=== PATIENT | female | born 1985 | race Two or more races ===

== ENCOUNTER 2020-01-23 10:49 | Emergency (ER) | payer MEDICAID ==
--- NOTE | 2020-01-23 11:07 | ER Document Report ---
ED Medical Screen (RME) - General Chief Complaint: Insect Bite Stated Complaint: INSECT BITE Time Seen by Provider: 01/23/20 10:51 Mode of Arrival: Ambulatory Information source: Patient Notes: 34-year-old banish speaking female from [place] with history of diabetes presents to the emergency department with reports of being bit by a tick approximately 2 weeks ago. She reports her son removed the tick but she is worried because her back still hurts. Patient then admits that she has been to see her primary care provider and has been treated for a sore throat within the past 2 weeks. She also admits to going to the emergency department in [place] for the back pain but was only tested for the COVID. She reports this test happened in January 18. She reports she was negative for COVID. Patient then came to the [facility] because there is so much sickness in [place]. Her back still hurts. She denies fever vomiting diarrhea. Because of this recent travel patient was escorted to pod 5. I have greeted and performed a rapid initial assessment of this patient. A comprehensive ED assessment and evaluation of the patient, analysis of test results and completion of the medical decision making process will be conducted by additional ED providers. - Related Data Allergies/Adverse Reactions: No Known Allergies Allergy (Verified 01/23/20 10:52) Physical Exam - Vital signs Vitals: Temp 98.2 F 01/23/20 10:53 Course - Vital Signs Vital signs: Temp Pulse Resp BP Pulse Ox 98.2 F 01/23/20 10:53
[2020-01-23 11:58] VITALS: BP 116/83
--- NOTE | 2020-01-23 11:58 | ER Document Report ---
ED General - General Chief Complaint: Insect Bite Stated Complaint: INSECT BITE Time Seen by Provider: 01/23/20 10:51 Mode of Arrival: Ambulatory Information source: Patient Notes: Patient is a 34-year-old female presenting to the emergency department chief complaint of back pain and tick bite. Patient states that she was bit by a tick several weeks ago family took it off but she feels that part of it may have been left inside. Patient states she has had back pain in that area since. Patient states she has been seen at her primary care office as well as a hospital but has not been treated for either issue. All information from HPI and review of systems has been obtained using electronic director digital marketing. - HPI Onset: Other - 2.5 wks Onset/Duration: Gradual, Persistent Quality of pain: Achy Severity: Mild Pain Level: 1 Associated symptoms: None. denies: Nonproductive cough, Productive cough, Diarrhea, Fever, Nausea, Vomiting, Weakness Exacerbated by: Denies Relieved by: Denies Similar symptoms previously: No Recently seen / treated by doctor: Yes - Related Data Allergies/Adverse Reactions: No Known Allergies Allergy (Verified 01/23/20 10:52) Past Medical History - General Information source: Patient - Social History Smoking Status: Never Smoker Cigarette use (# per day): No Chew tobacco use (# tins/day): No Smoking Education Provided: No Frequency of alcohol use: None Drug Abuse: None Lives with: Family Family History: Reviewed & Not Pertinent Patient has suicidal ideation: No Patient has homicidal ideation: No Endocrine Medical History: Reports: Hx Diabetes Mellitus Type 2 Surgical Hx: Negative Review of Systems - Review of Systems Notes: REVIEW OF SYSTEMS: CONSTITUTIONAL : Denies fever, chills, or sweats. Denies recent illness. EENT: Denies eye, ear, throat, or mouth pain or symptoms. Denies nasal or sinus congestion. CARDIOVASCULAR: Denies chest pain. RESPIRATORY: Denies cough, cold, or chest congestion. Denies shortness of breath, difficulty breathing, or wheezing. GASTROINTESTINAL: Denies abdominal pain. Denies nausea, vomiting, or diarrhea. Denies constipation. GENITOURINARY: Denies difficulty urinating, painful urination, burning, frequency, or blood in urine. MUSCULOSKELETAL: Per HPI SKIN: Denies rash or skin lesions. HEMATOLOGIC : Denies easy bruising or bleeding. NEUROLOGICAL: Denies altered mental status or loss of consciousness. Denies headache. Denies weakness or paralysis or loss of use of either side. Denies problems with gait or speech. Denies sensory or motor loss. PSYCHIATRIC: Denies suicidal or homicidal ideations 10 Systems are negative unless otherwise specified above Physical Exam - Vital signs Vitals: Temp 98.2 F 01/23/20 10:53 - Notes Notes: PHYSICAL EXAMINATION: GENERAL: Well-appearing, well-nourished and in no acute distress. HEAD: Atraumatic, normocephalic. EYES: Pupils equal round and reactive to light, extraocular movements intact, sclera anicteric, conjunctiva are normal. ENT: nares patent, oropharynx clear without exudates. Moist mucous membranes. NECK: Normal range of motion, supple without lymphadenopathy, no appreciable JVD LUNGS: Lungs clear to auscultation bilaterally and equal. No wheezes rales or rhonchi. HEART: Regular rate and rhythm without murmurs ABDOMEN: Soft, nontender, normal bowel sounds. No guarding, no rebound. No masses appreciated. EXTREMITIES: Active full range of motion, no pitting or edema. No cyanosis. 2+ pulses x4 Back: Back is examined with nurse in attendance there is a small area approximately 3 mm in diameter appears to be a old scab superior and medial to the right upper scapula there is no rash or target lesion identified. NEUROLOGICAL: No focal neurological deficits. Moves all extremities spontaneously and on command. SKIN: Warm, Dry, and intact. Normal turgor, no rashes or lesions noted. Course - Re-evaluation Re-evalutation: 01/23/20 12:02 I discussed the findings with the patient and she will have Lyme titer as well as [place] spotted fever titers these are send out and she will be called if they are positive. At this point in time I do not feel the need to start antibiotics. Patient can treat her back pain with [id number] Tylenol Motrin and ice. - Vital Signs Vital signs: Temp Pulse Resp BP Pulse Ox 99.0 F 114 H 18 116/83 96 01/23/20 10:56 01/23/20 10:56 01/23/20 10:56 01/23/20 10:56 01/23/20 10:56 Discharge - Discharge Clinical Impression: Back pain Qualifiers: Back pain location: thoracic back pain Chronicity: unspecified Back pain laterality: right Qualified Code(s): M54.6 - Pain in thoracic spine Tick bite Qualifiers: Encounter type: initial encounter Qualified Code(s): W57.XXXA - Bitten or stung by nonvenomous insect and other nonvenomous arthropods, initial encounter Condition: Stable Disposition: HOME, SELF-CARE Additional Instructions: LOW BACK PAIN: Three out of every four people will have an episode of disabling back pain during their lifetime. Most commonly the pain is due to straining of the muscles and ligaments in the low back. Usual treatment includes: (1) Rest on a firm surface. Avoid lying on your stomach. (2) Ice pack the painful area. After a few days, gentle heat may be used intermittently to relax the area, or ice packs can be continued. (3) Medication may be needed -- muscle relaxers and antiinflammatory medicines are commonly used. (4) As the back improves, exercises are prescribed to strengthen the back and abdominal muscles. Your doctor will advise you on the proper care for your back at each stage in your recovery. You may be better in a few days -- or healing may take several weeks. If new symptoms of a "herniated disc" (radiation of pain, numbness, or tingling down the back of the leg or weakness in the leg) occur, you should be re-examined. Further testing may be necessary. ICE PACKS: Apply ice packs frequently against the painful area. Many different schedules are recommended, such as "20 minutes on, 20 minutes off" or "one hour ice, two hours rest." If you need to work, you may need to go longer between ice treatments. You should plan to have the area ice packed AT LEAST one fourth of the time. The ice should be applied over the wrap, tape, or splint, or over a layer of cloth -- not directly against the skin. Some ice bags have a built-in cloth and can be put directly on the skin. WARM PACKS: After approximately two days, apply gentle heat (such as a heating pad or hot water bottle) for about 20 to 30 minutes about every two hours -- at least four times daily. Warmth and elevation will help you make a more rapid recovery, and will ease the pain considerably. Do not use HOT heat, and never apply heat for longer than 30 minutes. The continuous heat can invisibly damage skin and muscles -- even when no burn is seen on the surface. Damaged muscles can make you MORE sore. FOLLOW-UP CARE: If you have been referred to a physician for follow-up care, call the physicians office for an appointment as you were instructed or within the next two days. If you experience worsening or a significant change in your symptoms, notify the physician immediately or return to the Emergency Department at any time for re-evaluation.
[2020-01-27 01:36] LABS: ROCKY MTN SPOTTED FEV IGG EIA Negative (Negative)
[2020-01-27 07:20] LABS: LYME DISEASE IGM AB <0.80 index (0.00-0.79)
[2020-01-27 07:21] LABS: ROCKY MTN SPOTTED FEVER IGM AB 0.61 index (0.00-0.89)
== END 2020-01-23 12:24 | disposition home or self-care (01) ==
LOC: ER 10:49
DX: S20.469A Insect bite (nonvenomous) of unspecified back wall of thorax, initial encounter (principal); W57.XXXA Bitten or stung by nonvenomous insect and other nonvenomous arthropods, initial encounter; M54.6 Pain in thoracic spine; E11.9 Type 2 diabetes mellitus without complications
CPT/HCPCS: 36415; 86617; 86618; 86757; 99282